=== PATIENT | female | born 1965 | race Caucasian/White ===

== ENCOUNTER → 2016-11-21 | Outpatient (CLI) | payer OTHER ==
[~2016-11-21] MED LIST: AMLO2.5T PO; ANAS1TAB PO; CALCTAB33 PO; GEMF600T PO; GLIP5TAB8 PO; LIPI40TA PO
[2016-11-21 08:37] LABS: HDL CHOLESTEROL 36.6 MG/DL (40.0-60.0)
== END ==
LOC: CLAB 07:48
PROVIDERS: ATTEND Family Medicine
DX: E78.5 Hyperlipidemia, unspecified (principal)
CPT/HCPCS: 36415; 80061

== ENCOUNTER → 2017-03-16 | Outpatient (CLI) | payer OTHER ==
[2017-03-16 11:49] LABS: HDL CHOLESTEROL 34.9 MG/DL (40.0-60.0); LDL CHOLESTEROL 162 MG/DL (0-99)
[2017-03-16 15:51] LABS: HEMOGLOBIN A1a 1.5 %; HEMOGLOBIN A1b 1.1 %; HEMOGLOBIN Ao 77.6 %; HEMOGLOBIN F 2.4 %; HEMOGLOBIN LA1C 3.1 %; HEMOGLOBIN P3 4.7 %
== END ==
LOC: CLAB 10:51
PROVIDERS: ATTEND Family Medicine
DX: E78.5 Hyperlipidemia, unspecified (principal); E11.9 Type 2 diabetes mellitus without complications
CPT/HCPCS: 36415; 80061; 83036